=== PATIENT | male | born 1955 | race Caucasian/White ===

== ENCOUNTER → 2020-12-08 18:26 | Outpatient (CLI) | payer OTHER ==
[2020-09-20 15:16] VITALS: BMI 35.7
[~2020-12-08 18:26] MED LIST: ALDACTONE25 MG PO; ARTANE2 MG PO; ATARAX 25 MG TA25 MG PO; ATIVAN1 MG PO; AVAPRO300 MG PO; BAYER CHEWABLE81 MG PO; CALCIUM 250+D T1 TAB PO; CALCIUM 600+D T1 TA1 PO; CARAFATE1 G PO; CLARITIN 10 MG10 MG PO; COREG12.5 MG PO; CREON DR 6,0001 EACH PO; CYTOMEL25 MCG PO; DEPAKOTE250 MG PO; DILAUDID2 MG PO; DILAUDID4 MG PO; DOXYCYCLINE HY100 M2 PO; ED-SPAZ0.125 MG PO; ELIQUIS2.5 MG PO; FLOMAX0.4 MG PO; FUROSEMIDE40 MG; GEODON60 MG PO; HEALTHYLAX17 GM PO; HYDRALAZINE HCL50 MG PO; HYDROCODONE-APA1 TAB PO; K-DUR20 MEQ PO; KLONOPIN1 MG PO; LASIX40 MG PO; LIPITOR40 MG PO; LISINOPRIL10 MG PO; LOXAPINE10 MG PO; MULTI-DAY VITAM1 TAB PO; NEXIUM40 MG PO; NUCYNTA75 MG PO; PEPCID40 MG PO; RESTORIL7.5 MG PO; ROPINIROLE HCL2 MG PO; TRICOR145 MG PO; VENTOLIN HFA18 GM INH; VIBRAMYCIN 100100 MG PO; VISTARIL50 MG PO; VITAMIN B-121000 MCG PO; VRAYLAR3 MG PO; WELLBUTRIN SR150 MG PO; ZANTAC150 MG PO; ZINC50 MG PO; ZOFRAN ODT4 MG/UDTAB PO
[2020-12-08 18:52] LABS: BASOPHILS 0.3 % (0-2); EOSINOPHILS 1.1 % (0-7); HEMATOCRIT 39.6 % (42.0-54.0); HEMOGLOBIN 11.9 g/dL (13.5-17.5); LYMPHOCYTE ABS# 1.37 10x3/uL (1.32-3.57); MCH 26.3 pg (26.0-34.0); MCHC 30.1 g/dL (31.0-37.0); MCV 87.4 fL (80.0-100.0); MONOCYTES 10.3 % (2-11); NEUTROPHIL ABS# 4.14 10x3/uL (1.78-5.38); NEUTROPHILS 66.3 % (40-80); RBC 4.53 10x6/uL (4.20-6.10); RDW 15.1 % (11.5-14.5); WBC 6.2 10x3/uL (4.8-10.8)
[2020-12-08 19:01] LABS: PLATELET COUNT 390 10x3/uL (130-400)
[2020-12-08 19:51] LABS: ERYTHROCYTE SEDIMENTATION RATE 18 mm/hr (0-20)
== END | disposition home or self-care (01) ==
LOC: D.LABREF 18:26
PROVIDERS: ATTEND Nurse Practitioner Family
DX: M25.551 Pain in right hip (principal)

== ENCOUNTER → 2020-12-16 08:52 | Day surgery (SDC) | payer OTHER ==
[2020-09-20 15:16] VITALS: BMI 35.7
--- NOTE | 2020-12-15 09:48 | NUR ---
CONFIRMED PT APPT FOR 12/16/20 THINNERS: NONE ALLX: KEFLEX, ABILIFY ARRIVAL TIME: 0900
--- NOTE | ~2020-12-16 | HEMODYNAMI ---
PATIENT:CAMILLE JI MEDICAL RECORD: [id number] : 55 LOCATION:JoseBiaREYES ADMISSION DATE: 12/16/20 Generatedon:110:29 Patient name: CAMILLE JI Patient #: [id number] SSN: DO B: 1955 Date of study: 12/16/2020 Page: Of Hemodynamic Procedure Report Patient Data Patient Demographics Procedure consent was obtained First Name: CAMILLE Gender: Male Last Name: MARGY : 1955 [facility] Initial: COLIN Age: 65 year(s) Patient #: [id number] Race: Unknown Additional ID: [id number] Contact details Address: [address] [place] [address] State: [place] City: [facility] Zip code: [address] Past Medical History Allergies Allergen Reaction Date Comments Reported Other allergy 12/16/2020 oxycoton, cephalexin, abilifi Admission Admission Data Admission Date: 12/16/2020 Admission Time: 8:52 Procedure Procedure Types Cath Procedure Peripheral Cath Diagnostic Procedure Miscellaneous Aspiration/Injection (Joint) Procedure Description Procedure Date Procedure Date: 12/16/2020 Procedure Start Time: 10:17 Procedure Staff Name Function Alec Mcbride MD Performing Physician Mal Munoz RT Monitor BECK BLACKWOOD RT Monitor Procedure Data Cath Procedure Fluoroscopy Diagnostic fluoroscopy Total fluoroscopy Time: 0.4 time: 0.4 min min Diagnostic fluoroscopy Total fluoroscopy dose: 14 dose: 14 mGy mGy Hemodynamics Rest Pre Cath Intra NCS Post Cath Procedure Log Time Note 9:42:43 SAFE-T PLUS MYELOGRAM TRAY opened to sterile field. 10:05:42 Mal Munoz RT (R) (CV) sent for patient. Start room use. 10:05:50 Signed procedure consent form obtained from patient. 10:05:51 Warm blankets applied, and fely hugger turned on for patient comfort. 10:05:52 Correct patient and procedure confirmed by team. 10:05:54 - 10:06:31 Patient allergic to Other allergyoxycoton, cephalexin, abilifi 10:06:34 Is the patient allergic to Iodine/contrast media? No. 10:06:37 Is patient on blood thinner?No 10:06:39 - 10:07:07 Right Hip was prepped with betadine and draped in sterile fashion. 10:12:24 Physician arrived 10:12:24 --------ALL STOP TIME OUT------ 10:12:25 Final Timeout: patient, procedure, and site verified with staff and physician. All members of the team are in agreement. 10:12:32 Right groin site verified by team. 10:13:11 Procedure started. 10:13:11 Full Disclosure recording started 10:17:40 Local anesthetic to Right Hip with Lidocaine 1% by Alec Mcbride MD.INITIAL ACCESS ONLY 10:26:36 Procedure ended.(Physican Out) 10:28:23 Fluoroscopy time 00.40 minutes. 10:28:26 Flurop Dose total: 14 10:28:26 Fluoroscopy dose: 14 mGy 10:29:07 bandaide applied sample sent to lab site stable pt sent home Device Usage Item Name Manufacture Quantity Catalog Hospital Part Current Minimal Lot# / Number Charge Number Stock Stock Serial# Code SAFE-T CareFusion 1 [id number] PLUS MYELOGRAM TRAY Signature Audit [place] Stage Time Signature Unsigned Intra-Procedure 12/16/2020 Mal 10:29:33 AM [facility] RT (R) (CV) [facility] [address] [place] [address]
[~2020-12-16 08:52] MED LIST changes: +CREON DR 24,001 EACH PO; -FUROSEMIDE40 MG; +FUROSEMIDE40 MG PO; +ROPINIROLE HCL1 MG PO; +SINEQUAN25 MG PO; +SYNTHROID25 MCG PO; +VOLTAREN100 GM TOPICAL
[2020-12-16 13:28] LABS: MACROPHAGES BF 1 %; NEUT - BF 94 %
== END | disposition home or self-care (01) ==
LOC: D.RAD 12-14 10:00
PROVIDERS: ATTEND Orthopaedic Surgery
DX: M25.551 Pain in right hip (principal); M87.851 Other osteonecrosis, right femur; I10 Essential (primary) hypertension

== ENCOUNTER 2020-12-20 11:07 | Inpatient (IN) | payer OTHER ==
[~2020-12-20] VITALS: Ht 180.3 cm; Wt 107.0 kg
--- NOTE | ~2020-12-20 | HEMODYNAMI ---
PATIENT:CAMILLE JI MEDICAL RECORD: [id number] : 55 LOCATION:JoseBiaMS [id number] ADMISSION DATE: 12/20/20 Generatedon:19:28 Patient name: CAMILLE JI Patient #: [id number] SSN: DO B: 1955 Date of study: 12/21/2020 Page: Of Hemodynamic Procedure Report Patient Data Patient Demographics Procedure consent was obtained First Name: CAMILLE Gender: Male Last Name: MARGY : 1955 [facility] Initial: COLIN Age: 65 year(s) Patient #: [id number] Race: Unknown Additional ID: [id number] Contact details Address: [address] [place] [address] State: [place] City: [facility] Zip code: [address] Past Medical History Allergies Allergen Reaction Date Comments Reported Other allergy 12/16/2020 oxycoton, cephalexin, abilifi Other allergy 12/21/2020 cephalexin,abilify, oxycodone, trazodone Admission Admission Data Admission Date: 12/20/2020 Admission Time: 11:07 Room #: [id number] Procedure Procedure Types Cath Procedure Peripheral Cath Diagnostic Procedure Lens Inspector Peripheral Procedures PICC PICC Line Placement Procedure Description Procedure Date Procedure Date: 12/21/2020 Procedure Start Time: 9:20 Procedure Staff Name Function Alec Mcbride MD Performing Physician Sho Fajardo RT Auditing Manager Magdalena Sanders RN Nurse Marni Infante RN Nurse Mal Munoz RT Scrub Procedure Data Cath Procedure Fluoroscopy Diagnostic fluoroscopy Total fluoroscopy Time: 0.4 time: 0.4 min min Diagnostic fluoroscopy Total fluoroscopy dose: 5 dose: 5 mGy mGy Hemodynamics Rest Pre Cath Intra NCS Post Cath Procedure Log Time Note 8:17:47 Use device set PICC 8:17:58 PowerPICC 5Fr double lumen catheter opened to sterile field. 8:17:59 SHIELD Sorbaview ([id number]) opened to sterile field. 8:18:00 Sterile Angiographic Pack opened to sterile field. 8:18:01 Bag Decanter ([id number]) opened to sterile field. 8:25:10 Time tracking: Regular hours (M-F 7:00 - 5:00) 8:25:31 Patient received from Med/Surg to IR Alert and oriented. Tansferred to table in Supine position. 8:25:38 Signed procedure consent form obtained from patient. 8:25:55 H&P Date Dictated: 12/21/2020 Within 30 days and on chart., H&P Addendum completed by physician on day of procedure. (MUST COMPLETE FOR ALL OUTPATIENTS). 8:28:31 Pre-procedure instructions explained to patient. 8:28:32 Pre-op teaching completed and patient verbalized understanding. 8:28:35 Patient NPO since Midnight. 8:29:55 Patient allergic to Other allergycephalexin,abilify, oxycodone, trazodone 8:30:03 Is patient on blood thinner?No 8:30:14 Right Arm area was prepped with chlora-prep and draped in sterile fashion 8:30:17 9:19:45 Physician arrived 9:19:46 --------ALL STOP TIME OUT------ 9:19:47 Final Timeout: patient, procedure, and site verified with staff and physician. All members of the team are in agreement. 9:20:23 Procedure started. 9:20:24 Full Disclosure recording started 9:20:41 Local anesthetic to right arm with Lidocaine 1% by Alec Mcbride MD.INITIAL ACCESS ONLY 9:20:45 Venous access obtained using ultrasound guidance. 9:26:10 PICC line was trimmed to 43cm and advanced to the superior vena cava.Position verified under fluoroscopy. 9:26:43 Procedure ended.(Physican Out) 9:27:10 Fluoroscopy time 00.40 minutes. 9:27:13 Fluoroscopy dose: 5 mGy 9:27:13 Flurop Dose total: 5 9:27:17 Procedure and supply charges have been captured, reviewed, submitted and are correct. 9:28:12 Report given to Med/Surg. Device Usage Item Name Manufacture Quantity Catalog Hospital Part Current Minimal Lot# / Number Charge Number Stock Stock Serial# Code PowerPIC Bard 1 [id number] 5Fr double lumen catheter SHIELD Centurion 1 [id number] Sorbaview ([id number]) Sterile Cardinal 1 [id number] Angiographic Health Pack Bag Decanter Microtek 1 [id number] () [employer] Signature Audit [place] Stage Time Signature Unsigned Intra-Procedure 12/21/2020 Sho Fajardo 9:28:28 AM RT(R) [facility] [address] [place] [address]
[~2020-12-20 11:07] MED LIST changes: -CREON DR 24,001 EACH PO; -ROPINIROLE HCL1 MG PO; -SINEQUAN25 MG PO; -SYNTHROID25 MCG PO; -VOLTAREN100 GM TOPICAL
--- NOTE | 2020-12-20 12:20 | NUR ---
PT ARRIVED TO MEDICAL FLOOR, PLACED IN ROOM 2205, NO NEEDS AT THIS TIME
[2020-12-20] MEDS ORDERED: SINEQUAN25 MG PO (12:50)
[2020-12-20] MEDS ORDERED: VOLTAREN100 GM TOPICAL (12:53)
[2020-12-20] MEDS ORDERED: ARTANE2 MG PO (12:54)
[2020-12-20] MEDS ORDERED: SYNTHROID25 MCG PO (13:07)
[2020-12-20] MEDS ORDERED: ALDACTONE25 MG PO (13:09)
[2020-12-20] MEDS ORDERED: ROPINIROLE HCL1 MG PO (13:09)
[2020-12-20] MEDS ORDERED: CREON DR 24,001 EACH PO (13:12)
[2020-12-20 13:15] LABS: BASOPHILS 0.2 % (0-2); EOSINOPHILS 0.4 % (0-7); HEMATOCRIT 37.8 % (42.0-54.0); HEMOGLOBIN 11.9 g/dL (13.5-17.5); IMMATURE GRANULOCYTES 0.2 % (0-5); LYMPHOCYTE ABS# 1.31 10x3/uL (1.32-3.57); LYMPHOCYTES 16.4 % (15-50); MCHC 31.5 g/dL (31.0-37.0); MCV 82.7 fL (80.0-100.0); MEAN PLATELET VOLUME 9.4 fL (7.4-10.4); MONOCYTES 10.6 % (2-11); NEUTROPHIL ABS# 5.78 10x3/uL (1.78-5.38); NEUTROPHILS 72.2 % (40-80); PLATELET COUNT 363 10x3/uL (130-400); RBC 4.57 10x6/uL (4.20-6.10); RDW 15.2 % (11.5-14.5)
[2020-12-20 13:21] VITALS: BP 115/67; BMI 32.9
[2020-12-20 13:28] LABS: ALBUMIN 3.5 g/dL (3.4-5.0); ANION GAP 10.4 mmol/L (8-16); BILIRUBIN - TOTAL 0.39 mg/dL (0.2-1.3); CALCIUM 10.5 mg/dL (8.5-10.1); CARBON DIOXIDE 30.2 mmol/L (21.0-32.0); CREATININE - SERUM 1.4 mg/dL (0.6-1.3); POTASSIUM - SERUM 3.6 mmol/L (3.5-5.1); PROTEIN - SERUM 8.1 g/dL (6.4-8.2)
[2020-12-20 18:59] VITALS: BP 119/79
[2020-12-20 20:00] VITALS: BP 124/66
[2020-12-21] VITALS: BP 133/77
--- NOTE | 2020-12-21 02:16 | NUR ---
I have reviewed this patient and I concur with the Shift Assessment completed by the Licensed Practical Nurse today this shift.
[2020-12-21 04:00] VITALS: BP 126/78
[2020-12-21 06:51] LABS: BASOPHILS 0.3 % (0-2); EOSINOPHILS 1.6 % (0-7); HEMATOCRIT 33.7 % (42.0-54.0); HEMOGLOBIN 10.6 g/dL (13.5-17.5); IMMATURE GRANULOCYTES 0.3 % (0-5); LYMPHOCYTE ABS# 1.11 10x3/uL (1.32-3.57); LYMPHOCYTES 17.6 % (15-50); MCH 26.3 pg (26.0-34.0); MCHC 31.5 g/dL (31.0-37.0); MCV 83.6 fL (80.0-100.0); MEAN PLATELET VOLUME 9.7 fL (7.4-10.4); MONOCYTES 11.2 % (2-11); NEUTROPHIL ABS# 4.36 10x3/uL (1.78-5.38); PLATELET COUNT 321 10x3/uL (130-400); RBC 4.03 10x6/uL (4.20-6.10); RDW 15.5 % (11.5-14.5); WBC 6.3 10x3/uL (4.8-10.8)
[2020-12-21 06:53] LABS: ALBUMIN 2.7 g/dL (3.4-5.0); ANION GAP 10.4 mmol/L (8-16); BILIRUBIN - TOTAL 0.84 mg/dL (0.2-1.3); CALCIUM 9.7 mg/dL (8.5-10.1); CREATININE - SERUM 1.1 mg/dL (0.6-1.3); POTASSIUM - SERUM 3.4 mmol/L (3.5-5.1); PROTEIN - SERUM 6.5 g/dL (6.4-8.2)
--- NOTE | 2020-12-21 07:30 | NUR ---
REC'D IN BED DURING WALKING ROUNDS AWAKE AND ALERT. RESP EVEN AND UNLABOREDW WITH NO DISTRESS NOTED. CAN EXPRESS NEEDS AND WANTS.NO C/O NOTED OR VOICED AT THIS TIME. ASSESSMENT COMPLETED. C/L IN REACH AT BEDSIDE.
[2020-12-21 12:51] VITALS: Ht 180.3 cm; Wt 107.0 kg
[2020-12-21 14:48] VITALS: BP 149/84
[2020-12-21 17:51] VITALS: BP 149/71
[2020-12-21 21:54] VITALS: BP 110/59
--- NOTE | 2020-12-21 22:00 | NUR ---
PT ARRIVED BACK FROM SURGERY AOX4. VSS. AT BEDSIDE. WOUND VAC TO RIGHT HIP. DR REESE CAME TO BEDSIDE TO SPEAK WITH . PROVIDED PT WITH WATER. DENIES OTHER NEEDS AT THIS TIME. CL IN REACH.
--- NOTE | 2020-12-21 23:45 | NUR ---
PT STATES PAIN 03/22, GAVE DILAUDID ORDERED. REQUESTED AND GIVEN ORANGE JUICE. DENIES OTHER NEEDS. CL IN REACH
[2020-12-22] VITALS: BP 110/59
--- NOTE | 2020-12-22 02:30 | NUR ---
PT STATES PAIN 02/19. REQUESTED AND GIVEN DILAUDID. DENIES OTHER NEEDS AT THIS TIME. CL IN REACH
[2020-12-22 04:00] VITALS: BP 127/62
--- NOTE | 2020-12-22 07:15 | NUR ---
REC'D IN WITH EYES CLOSED EASILY TO AROUSED WHEN NAME IS CALLED. RESP EVEN AND UNLABORED WITH NO DISTRESS NOTED OR VOICED. NO C/O NOTED OR VOICED. ASSESSMENT COMPLETED. C/L IN REACH AT BEDSIDE.
--- NOTE | 2020-12-22 07:18 | OP ---
PATIENT NAME: CAMILLE JI MEDICAL RECORD: [id number] :55 LOCATION:D.MS Florez5 ADMISSION DATE:12/20/20 SURGEON: AJAY REESE DO DATE OF OPERATION: 12/21/2020 PROCEDURE PERFORMED: Right total hip revision with explant and cemented stem and poly for acetabulum. PREOPERATIVE DIAGNOSIS: Prosthetic joint infection, right hip. POSTOPERATIVE DIAGNOSIS: Prosthetic joint infection, right hip. INDICATION: Mr. 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 He had seromas, which drained several times, we aspirated them and the culture grew and then a couple of weeks ago, he started to have groin pain. Adan out ESR and CRP. CRP was elevated. I then sent for a hip aspiration, aspirated and grew out methicillin-resistant and oxacillin-resistant staph. We then directly admitted him. We got the culture results and set him up for surgery. I told him I need to take everything out and had to cement in a cup and a stem and that he be at high risk for fracture, further infection, bleeding, damage to nerves or vessels, need for further surgery, continued pain, dislocation and blood clots and even and he signed the consent. SURGEON: Ajay Reese DO DESCRIPTION OF PROCEDURE: The patient was taken to the operative suite, laid in the supine position, given general anesthetic and intubated. He was given 2 grams Ancef, even though he was on antibiotics already. I then prepped and draped the right hip. A timeout was performed, everyone was agreed to the correct site, side, site, patient and procedure. We then began by making an incision over the prior incision and made careful dissection down. It was a very robust scar tissue. I made a dissection down to the hip joint itself and then removed most scar tissue. I then cleared it out around the cup and held traction on the [place] table while I tapped off the head and then removed the dual mobility bearing as we could not dislocate it. I then took some time loosening up the stem with several flexible osteotomes and try to get it out, it took several hours. Once I finally got the stem loosen, I impacted it out and the greater trochanter broke off the femur. I then exposed the cup, put in Charnley and used a cup cutter and loosen the acetabular cup and came out. I then irrigated with 6 liters normal saline and reamed the acetabulum up to a 56. This gave fresh bleeding bone. I then cemented in a poly after using a bur on the back of the tibia to create holes in line in order to catch the cement, put the cement in the acetabulum and on the implant on the back of it and pressed it into place and held until while the cement dried. I cleaned the cement out the edges. I then broached on the hip up to an 11, decided to cement in a 9. I put in a cement restrictor, mixed with cement. Antibiotics were put in both cement batches of vancomycin and tobramycin. I then put the cement down the canal of the femur and on the stem and put it into place and held this in place while the cement dried, and once cement dried, we trialled a standard length head and neck and it was equal lengths to the left side. I then removed the trial and put on the actual implant impacted into place and got x-rays. The greater trochanter fracture was seen. The cement mantle was good on the poly and on the acetabulum and then the femur and no further fractures were seen down the femur and the OPERATIVE REPORT [id number] CAMILLE JI femoral stem and good cement mantle. We then irrigated with 10% povidone iodine and 500 mL of normal saline solution and let it sit for 3 minutes and irrigated out with 3 liters normal saline and then closed the fascia what was left of it with a #1 Vicryl in a [id number] fashion and then the skin and then did a skin plasty taking out the old scar and used 2-0 Vicryl to approximate the skin wound in an inverted interrupted fashion and then ran a 4-0 Monocryl and I then placed a Prevena plus VAC on it. He was then awakened and taken to recovery in stable condition. Blood loss approximately 600 mL. COMPLICATIONS: Greater trochanter fracture. TRANSINT:[id number] Voice Confirmation ID: [id number] DOCUMENT ID: [id number] AJAY REESE DO at 7351 CC: [id number] DICTATION DATE: 12/21/202114 CENTRAL PROCESSING TECH: 12/22/[address] [facility] [address] [id number]
[2020-12-22 07:33] LABS: HEMATOCRIT 29.6 % (42.0-54.0); HEMOGLOBIN 8.9 g/dL (13.5-17.5); LYMPHOCYTE ABS# 1.37 10x3/uL (1.32-3.57); MCH 25.9 pg (26.0-34.0); MCHC 30.1 g/dL (31.0-37.0); MEAN PLATELET VOLUME 9.8 fL (7.4-10.4); NEUTROPHIL ABS# 18.27 10x3/uL (1.78-5.38); PLATELET COUNT 390 10x3/uL (130-400); RBC 3.44 10x6/uL (4.20-6.10); RDW 15.7 % (11.5-14.5); WBC 21.2 10x3/uL (4.8-10.8)
[2020-12-22 07:52] LABS: ALBUMIN 2.3 g/dL (3.4-5.0); BILIRUBIN - TOTAL 0.28 mg/dL (0.2-1.3); CALCIUM 9.2 mg/dL (8.5-10.1); CARBON DIOXIDE 24.7 mmol/L (21.0-32.0); PROTEIN - SERUM 5.9 g/dL (6.4-8.2)
[2020-12-22 07:56] LABS: ANION GAP 13.2 mmol/L (8-16); CREATININE - SERUM 1.9 mg/dL (0.6-1.3); POTASSIUM - SERUM 4.9 mmol/L (3.5-5.1)
[2020-12-22 08:10] LABS: LYMPHOCYTES 5 % (15-50); MONOCYTES 5 % (2-11); NEUTROPHILS 87 % (40-80); PLATELET ESTIMATE NORMAL
[2020-12-22 10:11] VITALS: BP 99/60
--- NOTE | 2020-12-22 11:28 | NUR ---
PATIENT IN BED, SLEEPING, FREE FROM SIGNS OF DISTRESS. BED LOW POSITION, CALL LIGHT IN REACH. IV INFUSIGN PER OCT. WILL CONTINUE TO MONITOR.
[2020-12-22 14:48] VITALS: BP 106/79
[2020-12-22 17:11] VITALS: BP 119/78
[2020-12-22 20:00] VITALS: BP 110/71
--- NOTE | 2020-12-22 23:07 | NUR ---
PT IS RESTING IN BED. COMPLAINED OF PAIN TO RIGHT HIP. PAIN MEDICATION WAS GIVEN AND EFFECTIVE. PHONED BUTCHER FOR AN ORDER OF ZOFRAN AND WAS GIVEN WELL. ABLE TO MAKE WANTS AND NEEDS KNOWN. ALERT AND ORIENTED. BED IN LOWEST POSITION AND CALL LIGHT IN REACH.
[2020-12-23] VITALS (12 sets, daily range): BP systolic 96–127; BP diastolic 37–72
[2020-12-23 06:16] LABS: BASOPHILS 0.1 % (0-2); EOSINOPHILS 0.2 % (0-7); HEMATOCRIT 24.4 % (42.0-54.0); IMMATURE GRANULOCYTES 0.3 % (0-5); LYMPHOCYTE ABS# 1.61 10x3/uL (1.32-3.57); MCHC 30.7 g/dL (31.0-37.0); MCV 84.7 fL (80.0-100.0); MEAN PLATELET VOLUME 9.7 fL (7.4-10.4); MONOCYTES 11.1 % (2-11); NEUTROPHIL ABS# 10.27 10x3/uL (1.78-5.38); NEUTROPHILS 76.3 % (40-80); RBC 2.88 10x6/uL (4.20-6.10); RDW 15.7 % (11.5-14.5); RETIC 2.56 % (0.45-2.28)
[2020-12-23 06:28] LABS: WBC 13.5 10x3/uL (4.8-10.8)
[2020-12-23 06:29] LABS: HEMOGLOBIN 7.5 g/dL (13.5-17.5); PLATELET COUNT 307 10x3/uL (130-400)
[2020-12-23 06:39] LABS: % SATURATION 17 % (15-55); IRON 42 ug/dl (35-150); TOTAL IRON BIND CAPACITY 244 ug/dl (260-445); UNSAT IRON BIND CAPACITY 202 ug/dl (150-375)
[2020-12-23 06:53] LABS: ALBUMIN 2.4 g/dL (3.4-5.0); ANION GAP 14.1 mmol/L (8-16); BILIRUBIN - TOTAL 0.46 mg/dL (0.2-1.3); CALCIUM 9.3 mg/dL (8.5-10.1); CARBON DIOXIDE 23.8 mmol/L (21.0-32.0); POTASSIUM - SERUM 4.9 mmol/L (3.5-5.1); PROTEIN - SERUM 5.7 g/dL (6.4-8.2)
[2020-12-23 06:56] LABS: CREATININE - SERUM 2.8 mg/dL (0.6-1.3)
--- NOTE | 2020-12-23 12:27 | NUR ---
REHAB PRESCREEN RECEIVED. CHART REVIEWED. PATIENT IS A MANAGED MEDICARE AND WILL HAVE TO HAVE HIS OCCUPATIONAL THERAPY EVAL COMPLETED, AND WILL HAVE TO BE ABLE TO PARTICIPATE A LITTLE MORE WITH PHYSICAL THERAPY. I WILL LOOK BACK AT HIS THERAPIES AFTER HE RECEIVES HIS BLOOD, AND HOPEFULLY HE WILL FEEL BETTER. THANK YOU FOR THIS REFERRAL. SHAHRAM WASHINGTON RN CLINICAL LIAISON, INPATIENT REHAB.
--- NOTE | 2020-12-23 13:22 | NUR ---
OT NOTE: PT COMPLETED UB HYGIENE TASKS WITH MIN A. PT COMPLETED ADL MOB WITH MOD A. PT IS EASILY FATIGUED. [phone] AMY BELL COTA
--- NOTE | 2020-12-23 14:58 | NUR ---
BLOOD FINISHED AT 1415 AND 2ND UNIT STARTED. HAD NAUSEA EARILER AND ZOFRAN GIVEN. PT WORRIED ABOUT SON WHO IS IN SURGERY AT THIS TIME. REAMINS IN ISOLATION FOR CONTACCT. CALL LIGHT IN REACH
--- NOTE | 2020-12-23 16:23 | NUR ---
WENT AND SPOKE WITH THE PATIENT. PATIENTS SON JUST GOT OUT OF SURGERY FOR HIS "COLON CANCER", AND HIS CALLED WHILE I WAS IN THE ROOM TALKING TO HIM. HIS SON IS GOING TO THE ICU, AND "IT DIDN'T GO EXPECTED". HE WANTS TO WAIT UNTIL AFTER HIS GETS TO SEE THEIR SON AND TALK TO HER BEFORE HE MAKES ANY DECISIONS. HE DID SIGN A ANI FOR [facility] IN[facility] RE[facility]. HE HAS MY NUMBERS TO CALL WHEN HE MAKES UP HIS MIND. I HAVE EXPLAINED THE PROCESS OF GETTING HIM ACCEPTED WITH HIS INSURANCE IF APPROPRIATE WITH NEED FOR 3 HOURS OF THERAPY. HE HAS STATED HIS UNDERSTANDING. I WILL CONTINUE TO FOLLOW AND AWAIT HIS DECISION. AGAIN, THANK YOU FOR THIS REFERRAL. SHAHRAM WASHINGTON RN CLINICAL LIAISON, INPATIENT REHAB.
--- NOTE | 2020-12-23 18:08 | NUR ---
PT RESTING WITH EYES CLOSED AND RESP EVEN AND UNLABORED. HAS HAD 1 EPISODE OF N/V TODAY AFTER LUNCH BUT RESOLVED WITH ZOFRAN. WOUND VAC REMAINS IN PLACE WITH NO DRAINAGE NOTED. HAS BEEN USING URINAL FOR OUTPUT. CALL LIGHT IN REACH
[2020-12-23 23:37] LABS: HEMATOCRIT 22.9 % (42.0-54.0)
[2020-12-23 23:38] LABS: HEMOGLOBIN 7.5 g/dL (13.5-17.5)
--- NOTE | 2020-12-23 23:55 | NUR ---
PT IN BED. PT HAS COMPLAINED OF RIGHT HIP PAIN. ORAL PAIN MEDICATION WAS GIVEN. PT STATES PAIN MED WAS NOT EFFECTIVE. PT'S BLOOD PRESSURE WAS RECHECKED UPON ASKING FOR ADDITIONAL PAIN MEDICATION. RECEIVED A READING OF 84/46, ASYMPTOMATIC. CALLED AND INFORMED [facility]IVER EXPEDITION GUIDE HOSPITIALIST. GIVEN ORDERS FOR STAT H&H AND 500 CC BOLUS. PT IS ABLE TO MAKE WANTS AND NEEDS KNOWN. BED IN LOW POSITION WITH CALL LIGHT IN REACH.
[2020-12-24] VITALS (8 sets, daily range): BP systolic 97–129; BP diastolic 50–68
--- NOTE | 2020-12-24 03:20 | NUR ---
1ST UNIT OF BLOOD STARTED AT 0318. VITALS: BP 129/53, R 20, P 102, TEMP 96.9.
--- NOTE | 2020-12-24 06:08 | NUR ---
pt's 2nd unit of blood started at 0600. vitals: bp 95/59, r 20, p 94, t 96.8. pt tolerated 1st unit well.
--- NOTE | 2020-12-24 08:31 | NUR ---
AWAKE AND ALERT. INCONTINENT OF URINE. SKIN CARE PER STAFF. LINENS CHANGED. LUNGS ARE CLEAR BILATERALLY, NO COUGH NOTED. SKIN IS INTACT WITHOUT REDNESS EXCEPT INCISION TO RIGHT GROIN WHICH HAS A WOUND VAC IN PLACE WITH SCANT SEROUS SANGUINESS DRAINAGE.
--- NOTE | 2020-12-24 09:00 | NUR ---
ATE ONLY ONE BITE OF SAUSAGE FOR BREAKFAST. TOOK AM MEDS CRUSHED AND IN . AT BEDSIDE.
--- NOTE | 2020-12-24 10:43 | NUR ---
WENT BACK UPSTAIRS AND SPOKE BRIEFLY WITH PATIENT AND HIS IN THE ROOM. AFTERWARDS, GAVE HIS A TOUR OF THE REHAB DEPARTMENT AND ANSWERED ALL QUESTIONS. SHE IS GOING TO TALK A LITTLE MORE WITH HER AND DAUGHTER. SHE FEELS THAT INPATIENT REHAB WOULD BE A GREAT OPTION FOR THEM. CURRENTLY PATIENT STILL PRESENTS IF HE NEEDS ANOTHER DAY OR TWO ON THE ACUTE FLOOR. WE WILL CONTINUE TO FOLLOW. AGAIN, THANK YOU FOR THIS REFERRAL. SHAHRAM WASHINGTON RN CLINICAL LIAISON, INPATIENT REHAB.
[2020-12-24 11:31] LABS: APTT 33.8 SECONDS (22.8-39.4); INR 1.33 (0.85-1.17); PROTIME 15.3 SECONDS (11.6-15.0)
[2020-12-24 11:35] LABS: BASOPHILS 0.1 % (0-2); EOSINOPHILS 0.7 % (0-7); IMMATURE GRANULOCYTES 0.2 % (0-5); LYMPHOCYTE ABS# 0.63 10x3/uL (1.32-3.57); LYMPHOCYTES 7.2 % (15-50); MCH 27.7 pg (26.0-34.0); MCHC 32.7 g/dL (31.0-37.0); MCV 84.8 fL (80.0-100.0); MEAN PLATELET VOLUME 9.4 fL (7.4-10.4); NEUTROPHIL ABS# 7.19 10x3/uL (1.78-5.38); NEUTROPHILS 82.8 % (40-80); RDW 14.9 % (11.5-14.5)
[2020-12-24 11:37] LABS: ALBUMIN 2.2 g/dL (3.4-5.0); BILIRUBIN - TOTAL 0.68 mg/dL (0.2-1.3); CALCIUM 8.7 mg/dL (8.5-10.1); CARBON DIOXIDE 28.8 mmol/L (21.0-32.0)
[2020-12-24 11:39] LABS: ANION GAP 9.9 mmol/L (8-16); CREATININE - SERUM 1.7 mg/dL (0.6-1.3); HEMATOCRIT 30.6 % (42.0-54.0); PLATELET COUNT 220 10x3/uL (130-400); POTASSIUM - SERUM 3.7 mmol/L (3.5-5.1); RBC 3.61 10x6/uL (4.20-6.10); WBC 8.7 10x3/uL (4.8-10.8)
--- NOTE | 2020-12-24 12:24 | NUR ---
Nutrition Follow-up: Diet: Diabetic PO intake: 0-10% x 3 meals yesterday Last BM: none since admit Wt: 236# (12/21/20) Meds noted: probiotics, SSI, CREON, lasix, NS@100 Labs noted: POC glu 119(H) Recommend: -Continue current diet. Will continue to honor food preferences within diet restrictions. -Will add Glucerna with meals. -MD may consider adding appetite stimulant if PO intake does not start to picking belt operator some. -RD will re-assess 12/28/20
--- NOTE | 2020-12-24 12:30 | NUR ---
FSBS 119. NO COVERAGE NEEDED. ATE ONLY A FEW BITES OF LUNCH.
--- NOTE | 2020-12-24 14:56 | NUR ---
BP IS UP ENOUGH TO GIVE NARCOTIC. GIVEN 4MG DILAUDID PO FOR C/O RIGHT HIP PAIN LEVEL 8. WILL MONITOR.
--- NOTE | 2020-12-24 15:40 | NUR ---
OT NOTE: (AM) PT COMPLETED BED MOB WITH MIN A. PT COMPLETED EOB SITTING WITH SBA. PT COMPLETED ADL MOB WITH CGA. PT REQUIRED TOTAL A FOR FÉLIX SOCKS. PT COMPLETED FACE HYGIENE WITH SETUP. (PM) PT COMPLETED CHAIR TO BED TSF WITH CGA. 830-9;108-118 AMY BELL COTA
--- NOTE | 2020-12-24 17:41 | NUR ---
IF PATIENT'S H/H REMAINS STABLE AND HIS BLOOD PRESSURE NORMALIZES AND NOT FURTHER COMPLICATION ARISE, WE PLAN TO ACCEPT HIM ON Sunday12/26/20. THIS INFORMATION HAS BEEN RELAYED TO ELINA CASSIDY RN CASE MANAGER. SHAHRAM WASHINGTON RN CLINICAL LIAISON, INPATIENT REHAB.
--- NOTE | 2020-12-24 17:44 | NUR ---
I HAVE NOTIFIED HIS AT [phone], VIA VOICEMAIL, THAT THE PATIENT WILL BE ACCEPTED TO INPATIENT REHAB IF HIS H/H AND B/P REMAIN STABLE.
--- NOTE | 2020-12-24 18:29 | NUR ---
ATE ABOUT 20 % OF MEAL. NO CHANGES NOTED. DENIES NEEDS.
[2020-12-25 04:58] LABS: BASOPHILS 0.2 % (0-2); EOSINOPHILS 1.6 % (0-7); HEMATOCRIT 29.1 % (42.0-54.0); HEMOGLOBIN 9.2 g/dL (13.5-17.5); IMMATURE GRANULOCYTES 0.3 % (0-5); LYMPHOCYTE ABS# 0.86 10x3/uL (1.32-3.57); LYMPHOCYTES 14.1 % (15-50); MCH 27.1 pg (26.0-34.0); MCHC 31.6 g/dL (31.0-37.0); MCV 85.8 fL (80.0-100.0); MEAN PLATELET VOLUME 9.1 fL (7.4-10.4); NEUTROPHIL ABS# 4.31 10x3/uL (1.78-5.38); NEUTROPHILS 70.8 % (40-80); PLATELET COUNT 203 10x3/uL (130-400); RBC 3.39 10x6/uL (4.20-6.10); RDW 15.3 % (11.5-14.5)
[2020-12-25 04:59] LABS: WBC 6.1 10x3/uL (4.8-10.8)
[2020-12-25 05:15] LABS: ANION GAP 10.3 mmol/L (8-16); BILIRUBIN - TOTAL 0.46 mg/dL (0.2-1.3); CARBON DIOXIDE 29.3 mmol/L (21.0-32.0); POTASSIUM - SERUM 3.6 mmol/L (3.5-5.1); PROTEIN - SERUM 5.4 g/dL (6.4-8.2)
[2020-12-25 05:19] LABS: CALCIUM 8.6 mg/dL (8.5-10.1); CREATININE - SERUM 1.1 mg/dL (0.6-1.3)
[2020-12-25 05:48] VITALS: BP 108/56
[2020-12-25 05:54] VITALS: BP 106/70
[2020-12-25 08:27] VITALS: BP 131/68
[2020-12-25 12:43] VITALS: BP 135/70
[2020-12-25 17:23] VITALS: BP 124/65
--- NOTE | 2020-12-25 17:23 | NUR ---
I have reviewed this patient and I concur with the Shift Assessment completed by the Licensed Practical Nurse today this shift.
--- NOTE | 2020-12-25 18:23 | NUR ---
MEDICATED WITH DILUADID FOR C/O RT HIP PX RATING 03/22. C/L IN REACH AT BEDSIDE
[2020-12-25 20:00] VITALS: BP 123/57
[2020-12-26 05:30] LABS: BASOPHILS 0.3 % (0-2); HEMATOCRIT 30.8 % (42.0-54.0); HEMOGLOBIN 9.8 g/dL (13.5-17.5); IMMATURE GRANULOCYTES 0.4 % (0-5); LYMPHOCYTE ABS# 0.96 10x3/uL (1.32-3.57); LYMPHOCYTES 12.9 % (15-50); MCH 27.5 pg (26.0-34.0); MCHC 31.8 g/dL (31.0-37.0); MCV 86.5 fL (80.0-100.0); MEAN PLATELET VOLUME 9.6 fL (7.4-10.4); MONOCYTES 13.5 % (2-11); NEUTROPHIL ABS# 5.27 10x3/uL (1.78-5.38); NEUTROPHILS 70.9 % (40-80); RBC 3.56 10x6/uL (4.20-6.10); RDW 15.6 % (11.5-14.5); WBC 7.4 10x3/uL (4.8-10.8)
[2020-12-26 05:38] LABS: PLATELET COUNT 262 10x3/uL (130-400)
[2020-12-26 05:47] LABS: ALBUMIN 2.1 g/dL (3.4-5.0); ALKALINE PHOSPHATASE 79 U/L (30-120); ALT (SGPT) 18 U/L (10-68); BILIRUBIN - TOTAL 0.42 mg/dL (0.2-1.3); CALC OSMOLALITY 279 mosm/kg (275-300); CARBON DIOXIDE 28.1 mmol/L (21.0-32.0); CHLORIDE - SERUM 105 mmol/L (98-107); GLUCOSE 109 mg/dL (74-106); POTASSIUM - SERUM 3.7 mmol/L (3.5-5.1); PROTEIN - SERUM 5.6 g/dL (6.4-8.2); SODIUM 139 mmol/L (136-145); UREA NITROGEN 16 mg/dL (7-18); eGFR NON AFRICAN AMERICAN 80 mL/min (90-120)
[2020-12-26 07:00] VITALS: BP 142/78
[2020-12-26] MEDS ORDERED: Rifampin PO (11:26)
[2020-12-26] MEDS ORDERED: ZYVOX PREMIX600 MG IV (11:26)
[2020-12-26] MEDS ORDERED: DILAUDID2 MG PO (11:27)
[2020-12-26] MEDS ORDERED: ASPIRIN81 MG PO (11:27)
[2020-12-26] MEDS ORDERED: FLORAJEN DIGES1 EACH PO (11:28)
--- NOTE | 2020-12-26 12:00 | NUR ---
PATIENT SITTING UP IN CHAIR WASHING UP. NO COMPLAINTS OR SIGNS OF DISTRESS. CALL LIGHT WITHIN REACH.
--- NOTE | 2020-12-26 15:24 | NUR ---
REPORT GIVEN TO REHAB AT THIS TIME. PICC LINE SALINE LOCKED. PATIENT BELONGINGS GATHERED UP. DAUGHTER AT BEDSIDE. WILL CALL TRANSPORTER TO TAKE PATIENT TO REHAB.
== END 2020-12-26 16:32 | DRG 467 ==
LOC: D.MS 11:07
PROVIDERS: Family Medicine; Radiology Diagnostic Radiology; ADMIT Orthopaedic Surgery; ATTEND Orthopaedic Surgery
PROC: 02HV33Z Insertion of Infusion Device into Superior Vena Cava, Percutaneous Approach (ICD-10-PCS; 2020-12-21)
PROC: B5181ZA Fluoroscopy of Superior Vena Cava using Low Osmolar Contrast, Guidance (ICD-10-PCS; 2020-12-21)
PROC: 0SR90J9 Replacement of Right Hip Joint with Synthetic Substitute, Cemented, Open Approach (ICD-10-PCS; principal; 2020-12-21 09:00)
PROC: 0SP90JZ Removal of Synthetic Substitute from Right Hip Joint, Open Approach (ICD-10-PCS; 2020-12-21 12:00)
DX: T84.51XA Infection and inflammatory reaction due to internal right hip prosthesis, initial encounter (principal); L76.34 Postprocedural seroma of skin and subcutaneous tissue following other procedure; D62 Acute posthemorrhagic anemia; Y83.9 Surgical procedure, unspecified as the cause of abnormal reaction of the patient, or of later complication, without mention of misadventure at the time of the procedure; G25.81 Restless legs syndrome; K21.9 Gastro-esophageal reflux disease without esophagitis; F41.9 Anxiety disorder, unspecified; F31.9 Bipolar disorder, unspecified; I12.9 Hypertensive chronic kidney disease with stage 1 through stage 4 chronic kidney disease, or unspecified chronic kidney disease; N18.9 Chronic kidney disease, unspecified; Z87.891 Personal history of nicotine dependence

== ENCOUNTER 2020-12-26 14:05 | Inpatient (IN) | payer MEDICARE ==
[~2020-12-26] VITALS: Ht 180.3 cm; Wt 107.0 kg
[~2020-12-26 14:05] MED LIST changes: +ASPIRIN81 MG PO; +CREON DR 24,001 EACH PO; +FLORAJEN DIGES1 EACH PO; +ROPINIROLE HCL1 MG PO; +Rifampin PO; +SINEQUAN25 MG PO; +SYNTHROID25 MCG PO; +VOLTAREN100 GM TOPICAL; +ZYVOX PREMIX600 MG IV
[2020-12-26 18:41] VITALS: BP 107/53; BMI 32.9
[2020-12-26 19:00] VITALS: BP 125/56
--- NOTE | 2020-12-26 19:34 | NUR ---
AWAKE AND ALERT. RESTING IN BED WITH RESPIRATIONS UNLABORED. WOUND VAC IN PLACE TO RIGHT HIP. RIGHT ARM PICC LINE INTACT. CONTACT ISOLATION IN PLACE. CALL LIGHT IN REACH.
--- NOTE | 2020-12-27 05:05 | NUR ---
QUIET HOURS. NO ACUTE CHANGES IN CONDITION THIS SHIFT. RESTING IN BED WITH RESPIRATIONS UNLABORED. NO DISTRESS NOTED. CALL LIGHT IN REACH. PICC LINE INTACT. WOUND VAC IN PLACE. REMAINS IN CONTACT ISOLATION.
[2020-12-27 07:15] LABS: BASOPHILS 0.3 % (0-2); EOSINOPHILS 1.8 % (0-7); HEMATOCRIT 32.5 % (42.0-54.0); HEMOGLOBIN 10.3 g/dL (13.5-17.5); IMMATURE GRANULOCYTES 0.9 % (0-5); LYMPHOCYTE ABS# 1.41 10x3/uL (1.32-3.57); LYMPHOCYTES 17.9 % (15-50); MCH 27.5 pg (26.0-34.0); MCHC 31.7 g/dL (31.0-37.0); MCV 86.9 fL (80.0-100.0); MEAN PLATELET VOLUME 10.1 fL (7.4-10.4); MONOCYTES 11.6 % (2-11); NEUTROPHIL ABS# 5.32 10x3/uL (1.78-5.38); NEUTROPHILS 67.5 % (40-80); RBC 3.74 10x6/uL (4.20-6.10); RDW 16.2 % (11.5-14.5); WBC 7.9 10x3/uL (4.8-10.8)
[2020-12-27 07:28] LABS: CALC OSMOLALITY 275 mosm/kg (275-300); CALCIUM 9.1 mg/dL (8.5-10.1); CARBON DIOXIDE 27.2 mmol/L (21.0-32.0); CHLORIDE - SERUM 104 mmol/L (98-107); GLUCOSE 101 mg/dL (74-106); PLATELET COUNT 322 10x3/uL (130-400); POTASSIUM - SERUM 4.1 mmol/L (3.5-5.1); SODIUM 138 mmol/L (136-145); UREA NITROGEN 13 mg/dL (7-18); eGFR NON AFRICAN AMERICAN 80 mL/min (90-120)
[2020-12-27 07:55] VITALS: BP 135/58
--- NOTE | 2020-12-27 13:04 | NUR ---
SITTING UP IN RECLINER IN ROOM FINISHING LUNCH. REPORTS LACK OF AN APPETITE. C/O PAIN TO RT HIP. WOUND VAC IN PLACE TO RT HIP. PAIN MEDS GIVEN ORDERED AND REQUESTED. CALL LIGHT IN REACH
[2020-12-27 15:23] VITALS: Ht 180.3 cm; Wt 107.0 kg
--- NOTE | 2020-12-27 19:00 | NUR ---
BEDSIDE REPORT COMPLETE. RECEIVED PT SITTING UP ON SIDE OF BED VISITING WITH FAMILY. DENIES ANY NEEDS. C/O 11/20 RIGHT HIP ACHING PAIN. REQUESTS PAIN MEDS WITH [facility]. [facility] PIC RED PORT PATENT ONLY, OTHER PORT NOT WORKING. DRESSING INTACT DATED 12/23/20. SWAB CAPS INTACT. CONTACT ISOLATION SIGNS ON DOOR ISOLATION GEAR STOCKED. PT IS LEGALLY BLIND. RIGHT HIP WOUND VAC INTACT. SHANNAN ALARM ON. CALL LIGHT AND WATER WITHIN REACH. CPOC
[2020-12-27 19:37] VITALS: BP 100/65
--- NOTE | 2020-12-28 01:27 | NUR ---
PT LYING IN BED EYES CLOSED RESTING. HOB ELEVATED. RR EVEN AND UNLABORED. CALL LIGHT WITHIN REACH. 400ML CONCENTRATED URINE EMPTIED FROM URINAL. SHANNAN ALARM ON.
--- NOTE | 2020-12-28 05:10 | NUR ---
PT LYING IN BED EYES CLOSED RESTING. HOB ELEVATED. RR EVEN AND UNLABORED. CALL LIGHT AND URINALS WITHIN REACH. SHANNAN ALARM ON
[2020-12-28 07:31] VITALS: BP 107/76
--- NOTE | 2020-12-28 14:43 | NUR ---
IN THERAPY. HAS BEEN RESTING QUIETLY IN BED MOST OF REST TIME FROM THERAPY. STATES HE IS VERY TIRED AND HIS LEG ACHES. WOUND VAC HAS SOME DARK COLORED SPARCE STREAKS IN THE TUBING. NONE NOTED IN CANISTER. WOUND VAC TO RT HIP STILL INTACT. PEDAL PULSES PRESENT X2.
--- NOTE | 2020-12-28 19:05 | NUR ---
BEDSIDE REPORT COMPLETE. RECEIVED PT SITTING UP ON SIDE OF BED VISITING WITH FAMILY. DENIES ANY NEEDS. C/O RIGHT HIP 5/10 DEEP ACHING DISCOMFORT. RIGHT HIP WOUND VAC INTACT AND VAC ON CONTINUOUS SUCTION. RIGHT UPPER ARM PICC PATENT DRESSING AND SWAB CAP INTACT. CALL LIGHT AND WATER WITHIN REACH. SHANNAN ALARM ON. CPOC
[2020-12-28 20:09] VITALS: BP 123/71
--- NOTE | 2020-12-29 02:40 | NUR ---
PT LYING IN BED SUPINE EYES CLOSED RESTING. HOB ELEVATED. RR EVEN AND UNLABORED. RIGHT HIP WOUND VAC WORKING PROPERLY. CALL LIGHT WITHIN REACH. SHANNAN ALARM ON
[2020-12-29 06:05] LABS: BASOPHILS 0.5 % (0-2); EOSINOPHILS 1.9 % (0-7); HEMATOCRIT 32.9 % (42.0-54.0); HEMOGLOBIN 10.8 g/dL (13.5-17.5); LYMPHOCYTES 20.9 % (15-50); MCHC 32.7 g/dL (31.0-37.0); MCV 85.6 fL (80.0-100.0); MEAN PLATELET VOLUME 7.1 fL (7.4-10.4); MONOCYTES 9.1 % (2-11); NEUTROPHILS 67.6 % (40-80); PLATELET COUNT 362 10x3/uL (130-400); RBC 3.84 10x6/uL (4.20-6.10); RDW 17.3 % (11.5-14.5); WBC 6.2 10x3/uL (4.8-10.8)
[2020-12-29 06:12] LABS: ANION GAP 8.5 mmol/L (8-16); CALCIUM 9.3 mg/dL (8.5-10.1); CARBON DIOXIDE 32.6 mmol/L (21.0-32.0); CREATININE - SERUM 1.1 mg/dL (0.6-1.3); POTASSIUM - SERUM 4.1 mmol/L (3.5-5.1)
[2020-12-29 08:00] VITALS: BP 116/65
--- NOTE | 2020-12-29 08:00 | NUR ---
SHIFT ASSMT COMPLETED.
[2020-12-29 08:09] VITALS: BP 116/65
--- NOTE | 2020-12-29 16:00 | NUR ---
RESTING QUIETLY.PICC LINE DRSG CHANGED.
--- NOTE | 2020-12-29 19:37 | NUR ---
AWAKE AND ALERT. SOME CONFUSION. RESPIRATIONS UNLABORED. NO DISTRESS NOTED. CALL LIGHT IN REACH. RIGHT ARM PICC LINE INTACT. WOUND VAC IN PLACE TO RIGHT HIP.
[2020-12-29 20:05] VITALS: BP 132/68
--- NOTE | 2020-12-30 04:59 | RHP ---
PATIENT: CAMILLE JI MEDICAL RECORD: [id number] ACCOUNT: [id number] LOCATION:[facility] [id number] : 55 ADMISSION DATE: 12/26/20 REHABILITATION HISTORY AND PHYSICAL EXAMINATION POST ADMISSION PHYSICIAN EXAMINATION ADMITTING DIAGNOSIS: Infected right hip prosthesis. HISTORY OF PRESENT ILLNESS: The patient was admitted to the rehab status post pacer placement on 12/21/[address] Buenrostro. 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 He sees Dr. Mcdaniels, is his PCP. The patient had an implant spacer placed on 12/20/2020. His right hip started giving him some pain. He had labs that were elevated. He actually grew out staph. He had the hip originally replaced on July 2020. He had some drainage and issues for 2 weeks status post surgery and developed some hematoma. He had a washout and stem exchange, cultures were negative at that time. Five weeks later, he had a large seroma that was drained. He was doing well until a couple of weeks ago when he began having some groin pain. He was seen and evaluated, found to have an infection in this hip. During his acute course, he was treated for blood loss anemia, acute hypertension, postoperative seroma of the skin, hyperglycemia. He has been placed on IV Cubicin and rifampin. Pharmacy is actually following him on this. He will continue to receive IV antibiotics. We need to manage his pain control. Prior to this admission, he was living with his . He is independent with a rolling walker and ambulation, completely independent with ADLs. He is currently min to max assist with ADLs and ambulating about 12 feet with a rolling walker with PT assist. He is weightbearing as tolerated. He will require intensive therapy to get back to his prior level of functioning. COMORBIDITIES: Include anxiety, bipolar disorder, chronic kidney disease, decrease in mobility, decrease in physical functioning, electrolyte imbalance, gastroesophageal reflux disease, hypertension, hyperglycemia, hypoalbuminemia, hypoxia, obesity. PAST MEDICAL HISTORY: Significant for hypertension, gastroesophageal reflux disease, seroma, insomnia, anxiety, restless legs, bipolar, prostate problems, Maddox's esophagitis, avascular necrosis, chronic renal insufficiency. PAST SURGICAL HISTORY: Includes hernia repair times 5, cholecystectomy, eyelid surgery, Vikki fundoplication, cervical fusion times 2, revision of a right total hip and stem and head swap. ALLERGIES: KEFLEX, ABILIFY, OXYCODONE, TRAZODONE. CURRENT MEDICATIONS: Include Floranex one cap daily, rifampin 600 mg daily, he is on TriCor 145 mg daily, Requip 1 mg daily, levothyroxine 12.5 mg daily, Artane 2 mg b.i.d., Loxitane 10 mg b.i.d., Zyvox 600 mg every 12 hours, Pepcid 40 mg b.i.d., Protonix 40 mg b.i.d., Sinequan 25 mg bedtime, Wellbutrin 150 mg b.i.d., aspirin chewable 81 mg daily, he is on glucose replacement protocol at this time, Vistaril 50 mg every 4 hours, Dilaudid 4 mg every 4 hours and Creon one cap t.i.d. with meals. HABITS: No alcohol or tobacco use. HISTORY AND PHYSICAL [id number] CAMILLE JI FAMILY HISTORY: Noncontributory. SOCIAL HISTORY: The patient hopes to return back home and get back to his prior level of functioning and be able to ambulate. REVIEW OF SYSTEMS: GENERAL: Does complain of some weakness and fatigue. HEENT: Denies cold, cough or congestion. CARDIOVASCULAR: Denies any chest pain. PHYSICAL EXAMINATION: VITAL SIGNS: Stable, afebrile. GENERAL: Somewhat obese gentleman in no acute distress upon exam. HEENT: Normocephalic and atraumatic. Mucosa moist. NECK: Supple with no lymphadenopathy. LUNGS: Clear in upper oliveros with no wheezing, rhonchi or rales. HEART: Regular rate and rhythm. No murmurs, rubs or gallops. ABDOMEN: Soft, benign, somewhat obese. EXTREMITIES: No clubbing, cyanosis or edema. Postoperative area looks pretty good at this time. NEUROLOGIC: He does have some weakness. LABORATORY DATA: White count today is noted to be 7.9, H&H of 10 and 32 and platelet count is noted to be 322. Sodium is 138, potassium 4.1, BUN and creatinine of 13 and 1.0 and blood sugar is noted to be 101. ASSESSMENT: This is a 65-year-old gentleman admitted to the rehab with a working diagnosis of an infected right hip prosthesis. The patient has potential to make improvement. We instituted the following multidisciplinary therapies including, not limited to physical, occupational, respiratory, speech, nutritional services, prosthetics and orthotics. Given his complex medical condition and risks for more complications, rehabilitation services cannot be provided at a low level of care such as [facility] facility. PLAN: 1. Admit to [facility] for inpatient therapy to include the following disciplines; A. Physical therapy to improve gait, all transfer skills and bed mobility to a modified independent level. B. Occupational therapy to improve activities of daily living. C. Case management to help with discharge planning and placement options. D. Nutrition to assist with nutritional needs. E. Rehabilitation nursing to assist in monitoring the patient's underlying medical condition and to assist with any type of bowel or bladder management. 2. The patient's current medication and medical care will be continued. 3. We will continue on rifampin and Zyvox as prescribed. 4. I am going to see again in the a.m. I will adjust pain medicines as needed. We will watch for any types of sedation on his Dilaudid and treat with Narcan if necessary and I will see again in a.m. TRANSINT:[id number] Voice Confirmation ID: [id number] DOCUMENT ID: [id number] RADHA notes whether there has been none or any medical/functional change since admission: HISTORY AND PHYSICAL [id number] CAMILLE JI - No change since preadmission screen. RADHA attests patient continues to be appropriate for IRF: - Continues to be appropriate. RUDY LOCO MD at 0459 CC: [id number] DICTATION DATE: 12/27/20906 TAP DANCER: 12/27/20 0953 ADM IN [facility] [address] [place] [address]
--- NOTE | 2020-12-30 05:01 | NUR ---
QUIET HOURS. NO ACUTE CHANGES IN CONDITION THIS SHIFT. RESTING IN BED WITH NO DISTRESS NOTED. WOUND VAC IN PLACE. RIGHT ARM PICC LINE INTACT.
[2020-12-30 07:32] VITALS: BP 121/63
--- NOTE | 2020-12-30 08:00 | NUR ---
SHIFT ASSMT COMPLETED.
--- NOTE | 2020-12-30 12:30 | NUR ---
HERE.STATES DRAINAGE OK.WILL CONTINUE WND VAC X1 MORE WEEK AND KEEP WATCH.
--- NOTE | 2020-12-30 14:00 | NUR ---
Nutrition Follow-up: Diet: Diabetic PO intake: ~92% average x 3 meals yesterday. He ate 100% of his breakfast this AM. He tells me that his appetite is "not very good at the moment." States that he is having a lot of pain and depression. Last BM: 12/30/20 Wt: 236# (12/27/20) Meds noted: probiotics, abx, SSI Labs reviewed Recommendations: -Recommend continue Diabetic diet. Will continue to honor food preferences within diet restrictions. -Encouarged PO intake. -RD will re-assess 01/03/21.
[2020-12-30 20:23] VITALS: BP 120/71
--- NOTE | 2020-12-30 21:35 | NUR ---
AWAKE AND ALERT. RESTING IN WHEELCHAIR. PATIENT IS LEGALLY BLIND. RIGHT ARM PICC LINE INTACT. WOUND VAC IN PLACE TO RIGHT HIP. SAMLL AMOUNT OF DARK BLOODY DRAINAGE NOTED. ASSITED TO BED. NO ACUTE DISTRESS NOTED. CALL LIGHT IN REACH.
--- NOTE | 2020-12-31 05:25 | NUR ---
RESTING IN BED. SLEPT IN SHORT INTERVALS. MEDICATED FOR PAIN SEVERAL TIMES THIS SHIFT. WOUND VAC IN PLACE. RIGHT ARM PICC LINE INTACT. NO DISTRESS NOTED.
[2020-12-31 06:23] LABS: BASOPHILS 0.6 % (0-2); EOSINOPHILS 1.6 % (0-7); HEMATOCRIT 31.3 % (42.0-54.0); HEMOGLOBIN 10.3 g/dL (13.5-17.5); LYMPHOCYTES 20.8 % (15-50); MCH 28.6 pg (26.0-34.0); MCV 86.6 fL (80.0-100.0); MONOCYTES 8.9 % (2-11); NEUTROPHILS 68.1 % (40-80); PLATELET COUNT 367 10x3/uL (130-400); RBC 3.61 10x6/uL (4.20-6.10); RDW 17.5 % (11.5-14.5); WBC 5.6 10x3/uL (4.8-10.8)
[2020-12-31 06:30] LABS: CALCIUM 9.5 mg/dL (8.5-10.1); CREATININE - SERUM 1.2 mg/dL (0.6-1.3)
[2020-12-31 07:57] VITALS: BP 101/74
--- NOTE | 2020-12-31 14:29 | NUR ---
CLINICAL UPDATES FAXED TO [employer] AT , AUTH. # [id number] WITH FAX CONFORMATION RECIEVED. WILL CONTINUE TO FOLLOW WITH PATIENT.
--- NOTE | 2020-12-31 16:07 | NUR ---
RESTING QUIETLY IN BED. EYES CLOSED, RESP EFFORT NON LABORED. NO SIGNS OF DISTRESS. CALL LIGHT IN REACH
--- NOTE | 2020-12-31 19:00 | NUR ---
BEDSIDE REPORT COMPLETE. RECEIVED PT SITTING UP ON SIDE OF BED. ALERT AND ORIENTED X4. C/O RIGHT HIP CONSTANT BURNING PULLING PAIN. WOUND VAC CONTINUOUS SUCTION AND DRESSING INTACT. BLOODY DRAINAGE NOTED IN CANISTER. RUE PICC PATENT NO REDNESS OR SWELLING AT INSERTION SITE NOTED. BIOPATCH IN PLACE. DRESSING AND SWAB CAP INTACT, DRESSING DATED 12/29/20. PT DENIES ANY NEEDS. CALL LIGHT AND URINALS WITHIN REACH. FALL PRECAUTIONS IN PLACE. CPOC
[2020-12-31 20:24] VITALS: BP 129/82
--- NOTE | 2021-01-01 02:31 | NUR ---
PT LYING IN BED EYES CLOSED RESTING. RR EVEN AND UNLABORED. WOUND VAC TO RIGHT HIP INTACT AND FUNCTIONING PROPERLY. NO ADDITIONAL DRAINAGE IN CANISTER NOTED. CALL LIGHT AND URINAL WITHIN REACH. EMPTIED 400ML DARK URINE FROM URINAL. SHANNAN ALARM ON
[2021-01-01 09:26] VITALS: BP 140/80
--- NOTE | 2021-01-01 18:55 | NUR ---
BEDSIDE REPORT COMPLETE. RECEIVED PT SITTING UP IN CHAIR VISITING WITH FAMILY. ALERT AND ORIENTED X4. RIGHT UPPER ARM PICC INTACT. RIGHT HIP DRESSING AND WOUND VAC INTACT. DENIES ANY NEEDS OR PAIN. NO DISTRESS NOTED. CALL LIGHT AND WATER WITHIN REACH. SHANNAN ALARM ON. CPOC
[2021-01-01 19:00] VITALS: BP 126/77
--- NOTE | 2021-01-02 01:57 | NUR ---
PT LYING IN BED SUPINE EYES CLOSED RESTING. HOB ELEVATED. RR EVEN AND UNLABORED. NO DISTRESS NOTED. WOUND VAC INTACT. CALL LIGHT WITHIN REACH. SHANNAN ALARM ON
--- NOTE | 2021-01-02 06:29 | NUR ---
PT LYING IN BED SUPINE EYES CLOSED RESTING. HOB ELEVATED. WOUND VAC INTACT. RR EVEN AND UNLABORED. NO ACUTE CHANGES IN CONDITION THIS SHIFT. CALL LIGHT AND WATER WITHIN REACH. SHANNAN ALARM ON. CPOC
[2021-01-02 06:59] VITALS: BP 134/77
[2021-01-02 07:00] VITALS: BP 134/77
--- NOTE | 2021-01-02 13:37 | NUR ---
IS SLEEPING MORE TODAY. REFUSED LUNCH. DID NOT EVEN DRINK ALL OF HIS MILK THIS MORNING. HIS LUNG CHEW SOUNDS WET. HE HAS A WEAK COUGH. INCONT OF URINE. HAD BM THIS MORNING. STILL HAS GROSS EDEMA NOTED. CONFUSED TODAY CALL LIGHT IN REACH. BED IN LOWEST POSITION. BED ALARM IN PLACE AND ON, SIDE RAILS UP X2.
--- NOTE | 2021-01-02 14:56 | NUR ---
WOUND VAC CHANGED BY DR REESE TODAY.
--- NOTE | 2021-01-02 18:55 | NUR ---
BEDSIDE REPORT COMPLETE. RECEIVED PT SITTING UP IN BED. ALERT AND ORIENTED X4. C/O HEARTBURN REQUESTS TUMS AND MILD RIGHT HIP 3/10 RADIATING DISCOMFORT. WOUND VAC INTACT, DRESSING CHANGED TODAY BY DR. REESE. RUE PICC INTACT, DRESSING AND SWAB CAPS INTACT. CALL LIGHT AND PERSONAL ITEMS WITHIN REACH. SHANNAN ALARM ON. CPOC
[2021-01-02 20:19] VITALS: BP 135/55
--- NOTE | 2021-01-02 23:37 | NUR ---
PT LYING IN BED AWAKE. REQUESTED PAIN MEDICATION 5/10 DEEP RADIATING PAIN. INFORMED PT IT WAS TOO EARLY FOR PAIN MEDICATION. PT VERBALIZED UNDERSTANDING. NO DISTRESS NOTED. CALL LIGHT WITHIN REACH. SHANNAN ALARM ON
--- NOTE | 2021-01-03 02:53 | NUR ---
PT LYING IN BED SUPINE EYES CLOSED RESTING. HOB ELEVATED. NO DISTRESS NOTED. CALL LIGHT WITHIN REACH. SHANNAN ALARM ON
--- NOTE | 2021-01-03 05:05 | NUR ---
PT SITTING UP ON SIDE OF BED. C/O RIGHT HIP 5/10 DEEP RADIATING DISCOMFORT. INFORMED PT TOO EARLY FOR PAIN MEDICATION. PT DENIES ANY OTHER NEEDS. URINALS EMPTIED AND DOCUMENTED IN FLOWCHART. NO ACUTE CHANGES IN CONDITION THIS SHIFT. WOUND VAC INTACT NO DRAINAGE NOTED. CALL LIGHT AND WATER WITHIN REACH. SHANNAN ALARM ON
[2021-01-03 08:00] VITALS: BP 135/86
[2021-01-03 08:26] LABS: BASOPHILS 0.6 % (0-2); HEMATOCRIT 35.2 % (42.0-54.0); HEMOGLOBIN 11.3 g/dL (13.5-17.5); LYMPHOCYTES 17.9 % (15-50); MCHC 32.2 g/dL (31.0-37.0); MCV 86.9 fL (80.0-100.0); MEAN PLATELET VOLUME 6.6 fL (7.4-10.4); MONOCYTES 7.3 % (2-11); NEUTROPHILS 73.2 % (40-80); RBC 4.05 10x6/uL (4.20-6.10); RDW 17.8 % (11.5-14.5); WBC 8.4 10x3/uL (4.8-10.8)
[2021-01-03 08:43] LABS: CALCIUM 9.7 mg/dL (8.5-10.1); CARBON DIOXIDE 28.6 mmol/L (21.0-32.0); CREATININE - SERUM 1.1 mg/dL (0.6-1.3); POTASSIUM - SERUM 4.6 mmol/L (3.5-5.1)
[2021-01-03 08:47] LABS: PLATELET COUNT 486 10x3/uL (130-400)
--- NOTE | 2021-01-03 12:37 | NUR ---
Nutrition Re-Assessment Diet: Diabetic PO intake: was ~33% average on 12/12/20 x 3 meals. Today he ate 75% of breakfast and 75% of lunch tray. Spoke with patient at bedside. He states that appetite is up and down, currently appetite is doing well. He denies needs from dietary at this time. Last BM: 12/30/20 x 2 Wt: probiotics, abx, creon Labs noted: Glu 107 Skin: incision to right hip with wound VAC in place Estimated nutrition needs: 1950-2350cal (25-30kcal/kg IBW), 86-102gms protein (1.1-1.3gms/kg), 1950-2350mL fluid (or per MD) Nutrition diagnosis: Increased protein needs r/t increased demand for healing AEB incision to right hip s/p Sx with wound VAC in place. Nutrition goals: -PO intake =/>75% meals -Meet fluid needs -Stable weight DHS -Blood glucose to trend near WNL Recommendations/Interventions: -Recommend continue current diet. Will continue to honor food preferences within diet restrictions. -Will add Glucerna TID for added protein. -RD will follow-up 01/05/21.
--- NOTE | 2021-01-03 13:23 | NUR ---
RESTING QUIETLY IN BED. HAS BEEN SITTING UP MOST OF MORNING AND WORKING WITH THERAPY. WOUND VAC TO RT HIP IN PLACE. CALL LIGHT IN REACH
--- NOTE | 2021-01-03 16:23 | NUR ---
SITTING ON SIDE OF BED DOING A PUZZLE BOOK. DENIES NEEDS OR C/O. WOUND VAC STILL IN PLACE TO RT HIP WITH MINIMAL AMOUNT OF BLOODY DRAIAGE NOTED. RLE IS SLIGHTLY LARGHER THATN LLE. PEDAL PULSES PRESENT X2.
[2021-01-03 19:00] VITALS: BP 135/86
--- NOTE | 2021-01-04 00:41 | NUR ---
SITTING UP AT SIDE OF BED LISTENING TO HIS PHONE. DENIES NEEDS. ABX INFUSING TO RIGHT PICC.
--- NOTE | 2021-01-04 04:17 | NUR ---
NOW RESTING WITH EYES CLOSED. CALL LIGHT WITHIN REACH. WOUND VAC IN PLACE
--- NOTE | 2021-01-04 04:52 | NUR ---
SITTING UP IN BED WITH CALL LIGHT WITHIN REACH. DILAUDID 4MG PROVIDED FOR PAIN LEVEL OF 8 IN RT HIP. WILL REASSESS PAIN LEVEL. DENIES FURTHER NEEDS.
[2021-01-04 08:00] VITALS: BP 116/46
--- NOTE | 2021-01-04 13:49 | NUR ---
SPOKE WITH PATIENT REGARDING DC PLANS, HE WOULD LIKE TO HAVE [facility], DR. CAO OFFICE TO ARRANGE FOR IV MEDICATION FOR HOME USE. DR. REY IS HIS PCP. HIS DC DATE IS 01/06/21. WILL CONTINUE TO FOLLOW WITH PATIENT.
--- NOTE | 2021-01-04 19:05 | NUR ---
BEDSIDE REPORT COMPLETE. RECEIVED PT SITTING UP ON SIDE OF BED. ALERT AND ORIENTED X4. WOUND VAC TO RIGHT HIP INTACT. RUE PICC PURPLE PORT PATENT, RED PORT UNABLE TO FLUSH. DRESSING AND SWAB CAP INTACT. C/O CONSTAND RIGHT HIP DISCOMFORT. DENIES ANY NEEDS. NO DISTRESS NOTED. CALL LIGHT AND PERSONAL ITEMS WITHIN REACH. SHANNAN ALARM ON. CPOC
[2021-01-04 20:16] VITALS: BP 128/84
--- NOTE | 2021-01-05 00:45 | NUR ---
PT LYING IN BED EYES CLOSED RESTING. RR EVEN AND UNLABORED. CALL LIGHT WITHIN REACH. SHANNAN ALARM ON
--- NOTE | 2021-01-05 04:05 | NUR ---
PT LYING IN BED EYES CLOSED RESTING. RR EVEN AND UNLABORED. SHANNAN ALARM ON
--- NOTE | 2021-01-05 06:36 | NUR ---
PT LYING IN BED EYES CLOSED RESTING. HOB ELEVATED. NO DISTRESS NOTED. CALL LIGHT WITHIN REACH. SHANNAN ALARM ON
[2021-01-05 07:57] VITALS: BP 117/70
--- NOTE | 2021-01-05 08:00 | NUR ---
SHIFT ASSMT COMPLETED.CL IN REACH.DENIES NAUSEA AT PRESENT.
--- NOTE | 2021-01-05 12:00 | NUR ---
SITTING UP IN CHAIR EATING LUNCH.CL IN REACH.
--- NOTE | 2021-01-05 13:45 | NUR ---
CARE TEAM MEETING: PATIENT WILL DC HOME IN AM. WILL CONTINUE TO FOLLOW WITH PATIENT.
--- NOTE | 2021-01-05 14:18 | NUR ---
Nutrition Re-Assessment Diet: Diabetic + Glucerna TID PO intake: ~46% average x last 9 meals. Patient ate 75% of breakfast meal and 50% of lunch meals. Last BM: 12/30/20 Wt: 236# (12/27/20) Meds noted: probiotics, abx, creon Labs reviewed Estimated nutrition needs: 1950-2350cal (25-30kcal/kg IBW), 86-102gms protein (1.1-1.3gms/kg), 1950-2350mL fluid (or per MD) Nutrition diagnosis: Inadequate energy intake r/t inadequate oral intake AEB PO intake <65% average. Nutrition goals: -PO intake will increase to =/>75% meals -Meet fluid needs -Stable weight DHS -Blood glucose to trend WNL Recommendations/Interventions: -Recommend continue current diet. Will continue to honor food preferences within diet restrictions. -Continue Glucerna TID. -RD will follow-up within 7 days.
--- NOTE | 2021-01-05 16:00 | NUR ---
remains up in chair.cl in reach.
--- NOTE | 2021-01-05 18:56 | NUR ---
BEDSIDE REPORT COMPLETE. RECEIVED PT SITTING UP ON SIDE OF BED. ALERT AND ORIENTED X4. DENIES ANY NEEDS OR PAIN. NO DISTRESS NOTED. RUE PICC INTACT. RIGHT HIP WOUND VAC INTACT. CALL LIGHT AND WATER WITHIN REACH. SHANNAN ALARM ON. CPOC
[2021-01-05 19:55] VITALS: BP 113/65
--- NOTE | 2021-01-05 21:30 | NUR ---
RUE PICC DRESSING REMOVED, NO REDNESS, SWELLING, OR DRAINAGE NOTED. CLEANSED PER PROTOCOL STARTING AT INSERTION SITE, APPLIED BIOPATCH, COVERED WITH DRESSING. DATE AND INITIAL DRESSING. PT TOLERATED WELL. BOTH RED AND PURPLE PORT FLUSHING WITHOUT DIFFICULTY.
--- NOTE | 2021-01-06 01:32 | NUR ---
PT LYING IN BED AWAKE. DENIES ANY NEEDS OR PAIN. NO DISTRESS NOTED. CALL LIGHT WITHIN REACH. SHANNAN ALARM ON
--- NOTE | 2021-01-06 06:10 | NUR ---
PT LYING IN BED AWAKE. DENIES ANY NEEDS OR PAIN. NO ACUTE CHANGES IN CONDITION THIS SHIFT. WOUND VAC INTACT. CALL LIGHT AND WATER WITHIN REACH. SHANNAN ALARM ON
[2021-01-06 07:24] VITALS: BP 125/63
[2021-01-06] MEDS ORDERED: Rifampin PO (08:38)
[2021-01-06] MEDS ORDERED: DILAUDID2 MG PO (08:38)
[2021-01-06] MEDS ORDERED: ZYVOX PREMIX600 MG IV (08:38)
--- NOTE | 2021-01-06 09:54 | NUR ---
PATIENT DISCHARGING HOME TODAY WITH S/O. [facility] WILL RESUME THERAPY AT HOME. NO COMPARE DATA REVIEWED PER PATIENT REQUEST. [facility] WILL PROVIDE IV MEDICATIONS TO PATIENT FOR HOME USE. DR. REY 01/17/21 @ 10:45, DR. REESE/RAUL FOREMAN 01/19/21 @ 2:00. DISCHARGE INSTRUCTIONS [facility]ED TO [facility] , AUTH. # [id number] AND REVIEWD WITH PATIENT.
--- NOTE | 2021-01-06 13:30 | NUR ---
DC HOME WITH . MEDS CALLED INTO PHARMACY. REVIEWED MEDS AND DC PLAN WITH PT AND . LEFT FLOOR IN WC. WOUND VAC WAS SWITCHED TO SMALL PORTABLE UNIT PRIOR TO DC.
== END 2021-01-06 13:32 | disposition home health service (06) | DRG 949 ==
LOC: D.REHAB 14:05
PROVIDERS: ADMIT Emergency Medicine; ATTEND Emergency Medicine
DX: T84.51XD Infection and inflammatory reaction due to internal right hip prosthesis, subsequent encounter (principal); E87.1 Hypo-osmolality and hyponatremia; F41.9 Anxiety disorder, unspecified; F31.9 Bipolar disorder, unspecified; I12.9 Hypertensive chronic kidney disease with stage 1 through stage 4 chronic kidney disease, or unspecified chronic kidney disease; N18.9 Chronic kidney disease, unspecified; K21.9 Gastro-esophageal reflux disease without esophagitis; I10 Essential (primary) hypertension; E66.9 Obesity, unspecified; R09.02 Hypoxemia; E87.8 Other disorders of electrolyte and fluid balance, not elsewhere classified; G25.81 Restless legs syndrome; R26.2 Difficulty in walking, not elsewhere classified; R42 Dizziness and giddiness; R00.0 Tachycardia, unspecified; Z68.32 Body mass index [BMI] 32.0-32.9, adult

== ENCOUNTER → 2021-01-12 10:07 | Outpatient (CLI) | payer OTHER ==
[2020-12-27 15:23] VITALS: BMI 32.9
--- NOTE | ~2021-01-12 | HEMODYNAMI ---
PATIENT:CAMILLE JI MEDICAL RECORD: [id number] : 55 LOCATION[facility] ADMISSION DATE: 01/12/21 Generatedon:111:22 Patient name: CAMILLE JI Patient #: [id number] SSN: DO B: 1955 Date of study: 01/12/2021 Page: Of Hemodynamic Procedure Report Patient Data Patient Demographics Procedure consent was obtained First Name: CAMILLE Gender: Male Last Name: MARGY : 1955 [facility] Initial: COLIN Age: 65 year(s) Patient #: [id number] Race: Unknown Additional ID: [id number] Contact details [address]: [address] [place] [address] State: [place] City: [facility] Zip code: [address] Past Medical History Allergies Allergen Reaction Date Comments Reported Other 12/16/2020 oxycoton, cephalexin, abilifi allergy Other 12/21/2020 cephalexin,abilify, oxycodone, allergy trazodone Other 01/12/2021 oxycodone,keflex,trazadone,abilify allergy Admission Admission Data Admission Date: 01/12/2021 Admission Time: 10:07 Procedure Procedure Types Cath Procedure Peripheral Cath Diagnostic Procedure Centrifuge Separator Tender Peripheral Procedures Venography IVC/SVC Superior Venacagram Procedure Description Procedure Date Procedure Date: 01/12/2021 Procedure Start Time: 11:14 Procedure Staff Name Function Alec Mcbride MD Performing Physician Magdalena Sanders RN Nurse Mal Munoz RT Scrub Sho Fajardo RT Radiological Defense Officer Procedure Data Cath Procedure Fluoroscopy Diagnostic fluoroscopy Total fluoroscopy Time: 0.5 time: 0.5 min min Diagnostic fluoroscopy Total fluoroscopy dose: 4 dose: 4 mGy mGy Contrast Material Contrast Material Type Amount (ml) Isovue 300 10 Hemodynamics Rest Pre Cath Intra NCS Post Cath Procedure Log Time Note 11:06:00 Time tracking: Regular hours (M-F 7:00 - 5:00) 11:06:35 Patient received from Other to IR Alert and oriented. Tansferred to table in Supine position. 11:06:40 Signed procedure consent form obtained from patient. 11:07:05 Pre-procedure instructions explained to patient. 11:07:05 Pre-op teaching completed and patient verbalized understanding. 11:07:09 Family in waiting room. 11:08:16 Patient allergic to Other allergyoxycodone,keflex,trazadone,abilify 11:08:25 - 11:08:55 Right Arm area was prepped with chlora-prep and draped in sterile fashion 11:14:02 Physician arrived 11:14:03 --------ALL STOP TIME OUT------ 11:14:03 Final Timeout: patient, procedure, and site verified with staff and physician. All members of the team are in agreement. 11:14:24 Procedure started. 11:14:24 Full Disclosure recording started 11:20:53 2mg of activase injected into both ports of picc line to dissolve clot 11:20:57 Procedure ended.(Physican Out) 11:21:11 Fluoroscopy time 00.50 minutes. 11:21:15 Fluoroscopy dose: 4 mGy 11:21:15 Flurop Dose total: 4 11:21:40 Contrast amount:Isovue 300 10ml. 11:21:43 Procedure and supply charges have been captured, reviewed, submitted an d are correct. Signature Audit [place] Stage Time Signature Unsigned Intra-Procedure 01/12/2021 Sho Fajardo 11:22:40 AM RT(R) [facility] [address] [place] [address]
[2021-01-12 10:43] LABS: BASOPHILS 1.2 % (0-2); EOSINOPHILS 0.4 % (0-7); HEMATOCRIT 35.5 % (42.0-54.0); HEMOGLOBIN 11.7 g/dL (13.5-17.5); LYMPHOCYTES 11.1 % (15-50); MCV 87.7 fL (80.0-100.0); MEAN PLATELET VOLUME 7.1 fL (7.4-10.4); MONOCYTES 7.4 % (2-11); NEUTROPHILS 79.9 % (40-80); RBC 4.05 10x6/uL (4.20-6.10); RDW 19.4 % (11.5-14.5); WBC 9.1 10x3/uL (4.8-10.8)
[2021-01-12 10:50] LABS: PLATELET COUNT 376 10x3/uL (130-400)
[2021-01-12 11:00] LABS: ALBUMIN 3.1 g/dL (3.4-5.0); ALKALINE PHOSPHATASE 186 U/L (30-120); ALT (SGPT) 18 U/L (10-68); BILIRUBIN - TOTAL 0.26 mg/dL (0.2-1.3); C-REACTIVE PROTEIN 0.6 mg/dL (0.0-0.9); CALC OSMOLALITY 268 mosm/kg (275-300); CALCIUM 9.6 mg/dL (8.5-10.1); CARBON DIOXIDE 29.9 mmol/L (21.0-32.0); CHLORIDE - SERUM 100 mmol/L (98-107); GLUCOSE 103 mg/dL (74-106); POTASSIUM - SERUM 4.3 mmol/L (3.5-5.1); SODIUM 134 mmol/L (136-145); UREA NITROGEN 14 mg/dL (7-18); eGFR NON AFRICAN AMERICAN 80 mL/min (90-120)
[2021-01-12 12:25] LABS: ERYTHROCYTE SEDIMENTATION RATE 43 mm/hr (0-20)
== END | disposition home or self-care (01) ==
LOC: D.LAB 10:00 → D.OPS 10:30
PROVIDERS: ATTEND Nurse Practitioner Family
DX: T82.898A Other specified complication of vascular prosthetic devices, implants and grafts, initial encounter (principal)

== ENCOUNTER → 2021-01-17 19:05 | Outpatient (CLI) | payer OTHER ==
[2020-12-27 15:23] VITALS: BMI 32.9
[2021-01-17 19:54] LABS: BASOPHILS 0.7 % (0-2); EOSINOPHILS 3.7 % (0-7); HEMATOCRIT 34.5 % (42.0-54.0); MCH 28.9 pg (26.0-34.0); MCV 90.4 fL (80.0-100.0); MEAN PLATELET VOLUME 8.1 fL (7.4-10.4); MONOCYTES 11.6 % (2-11); PLATELET COUNT 304 10x3/uL (130-400); RBC 3.82 10x6/uL (4.20-6.10); RDW 20.2 % (11.5-14.5); WBC 5.8 10x3/uL (4.8-10.8)
[2021-01-17 19:55] LABS: C-REACTIVE PROTEIN 2.5 mg/dL (0.0-0.9); CREATININE - SERUM 1.2 mg/dL (0.6-1.3)
[2021-01-17 21:27] LABS: ERYTHROCYTE SEDIMENTATION RATE 32 mm/hr (0-20)
== END | disposition home or self-care (01) ==
LOC: D.LABREF 19:05
PROVIDERS: ATTEND Family Medicine
DX: T84.51XA Infection and inflammatory reaction due to internal right hip prosthesis, initial encounter (principal); I12.9 Hypertensive chronic kidney disease with stage 1 through stage 4 chronic kidney disease, or unspecified chronic kidney disease

== ENCOUNTER → 2021-01-24 13:39 | Outpatient (CLI) | payer OTHER ==
[2020-12-27 15:23] VITALS: BMI 32.9
[2021-01-24 13:58] LABS: BASOPHILS 0.4 % (0-2); EOSINOPHILS 0.4 % (0-7); LYMPHOCYTES 11.9 % (15-50); MCH 29.1 pg (26.0-34.0); MCHC 32.2 g/dL (31.0-37.0); MCV 90.4 fL (80.0-100.0); MEAN PLATELET VOLUME 7.6 fL (7.4-10.4); MONOCYTES 8.1 % (2-11); NEUTROPHILS 79.2 % (40-80); PLATELET COUNT 345 10x3/uL (130-400); RBC 3.77 10x6/uL (4.20-6.10); RDW 19.2 % (11.5-14.5); WBC 8.8 10x3/uL (4.8-10.8)
[2021-01-24 14:02] LABS: C-REACTIVE PROTEIN 0.2 mg/dL (0.0-0.9)
[2021-01-24 15:22] LABS: ERYTHROCYTE SEDIMENTATION RATE 5 mm/hr (0-20)
== END | disposition home or self-care (01) ==
LOC: D.LABREF 13:39
PROVIDERS: ATTEND Family Medicine
DX: T84.51XA Infection and inflammatory reaction due to internal right hip prosthesis, initial encounter (principal); I12.9 Hypertensive chronic kidney disease with stage 1 through stage 4 chronic kidney disease, or unspecified chronic kidney disease

== ENCOUNTER → 2021-01-26 18:34 | Outpatient (CLI) | payer OTHER ==
[2020-12-27 15:23] VITALS: BMI 32.9
== END | disposition home or self-care (01) ==
LOC: D.LABREF 18:34
PROVIDERS: ATTEND Family Medicine
DX: S70.01XA Contusion of right hip, initial encounter (principal)

== ENCOUNTER → 2021-01-31 17:43 | Outpatient (CLI) | payer OTHER ==
[2020-12-27 15:23] VITALS: BMI 32.9
[2021-01-31 18:06] LABS: HEMATOCRIT 34.1 % (42.0-54.0); HEMOGLOBIN 10.9 g/dL (13.5-17.5); MCH 29.6 pg (26.0-34.0); MCHC 32.1 g/dL (31.0-37.0); MCV 92.1 fL (80.0-100.0); MEAN PLATELET VOLUME 7.8 fL (7.4-10.4); PLATELET COUNT 303 10x3/uL (130-400); RDW 19.4 % (11.5-14.5); WBC 6.3 10x3/uL (4.8-10.8)
[2021-01-31 18:13] LABS: C-REACTIVE PROTEIN 2.6 mg/dL (0.0-0.9)
[2021-01-31 19:23] LABS: ERYTHROCYTE SEDIMENTATION RATE 48 mm/hr (0-20)
[2021-01-31 19:26] LABS: LYMPHOCYTES 22 % (15-50); MONOCYTES 6 % (2-11); NEUTROPHILS 71 % (40-80); PLATELET ESTIMATE NORMAL
== END | disposition home or self-care (01) ==
LOC: D.LABREF 17:43
PROVIDERS: ATTEND Family Medicine
DX: T84.51XA Infection and inflammatory reaction due to internal right hip prosthesis, initial encounter (principal); I12.9 Hypertensive chronic kidney disease with stage 1 through stage 4 chronic kidney disease, or unspecified chronic kidney disease

== ENCOUNTER → 2021-02-07 22:11 | Outpatient (CLI) | payer OTHER ==
[2020-12-27 15:23] VITALS: BMI 32.9
[2021-02-07 23:58] LABS: BASOPHILS 1.2 % (0-2); EOSINOPHILS 0.6 % (0-7); HEMATOCRIT 33.6 % (42.0-54.0); HEMOGLOBIN 11.1 g/dL (13.5-17.5); LYMPHOCYTES 14.2 % (15-50); MCH 29.7 pg (26.0-34.0); MCHC 32.9 g/dL (31.0-37.0); MCV 90.4 fL (80.0-100.0); MEAN PLATELET VOLUME 7.5 fL (7.4-10.4); MONOCYTES 10.6 % (2-11); NEUTROPHILS 73.4 % (40-80); RBC 3.72 10x6/uL (4.20-6.10); RDW 17.9 % (11.5-14.5); WBC 7.8 10x3/uL (4.8-10.8)
[2021-02-08 00:02] LABS: PLATELET COUNT 395 10x3/uL (130-400)
[2021-02-08 01:13] LABS: ERYTHROCYTE SEDIMENTATION RATE 30 mm/hr (0-20)
== END | disposition home or self-care (01) ==
LOC: D.LABREF 22:11
PROVIDERS: ATTEND Nurse Practitioner Family
DX: M25.551 Pain in right hip (principal)